=== PATIENT | male | born 2000 | race Hispanic/Latino ===

== ENCOUNTER 2018-01-10 13:46 | Emergency (ER) | payer MEDICAID, OTHER | END 2018-01-10 14:33 | disposition home or self-care (01) | LOC: EDH 13:46 | DX: Z11.3 Encounter for screening for infections with a predominantly sexual mode of transmission (principal) | CPT/HCPCS: 99281 ==

== ENCOUNTER 2020-07-23 13:51 | Emergency (ER) | payer SELFPAY ==
[2020-07-23] MEDS ORDERED: KETOROLAC TROMETHAMINE 30MG/ML ONE (14:23)
[2020-07-23 14:47] LABS: INR 1.01 (0.85-1.15); PARTIAL THROMBOPLASTIN TIME 30.8 SEC (26.3-35.5); POTASSIUM 3.7 mmol/L (3.5-5.1); PROTHROMBIN TIME 10.9 SEC (9.6-11.6)
[2020-07-23 14:54] LABS: ALBUMIN 3.6 g/dL (3.5-5.0); BILIRUBIN,TOTAL 0.3 mg/dL (0.2-1.0); TOTAL PROTEIN, SERUM 7.3 g/dL (6.0-8.3)
[2020-07-23 15:02] LABS: BASOPHILS % (AUTO) 0.3 % (0.0-5.0); EOSINOPHILS % (AUTO) 0.3 % (0.0-8.0); HEMATOCRIT 41.9 % (42-54); LYMPHOCYTES % (AUTO) 11.9 % (21.0-51.0); MEAN CORPUSCULAR HEMOGLOBIN 30.7 pg (27.0-33.0); MEAN CORPUSCULAR HGB CONC 34.8 g/dL (32.0-36.0); MEAN CORPUSCULAR VOLUME 88.2 fL (80-100); MONOCYTES % (AUTO) 7.6 % (3.0-13.0); NEUTROPHILS % (AUTO) 79.7 % (40.0-77.0); PLATELET COUNT (AUTO) 182 K/uL (130-400); RED BLOOD CELL COUNT(AUTO) 4.75 MIL/uL (4.50-6.20); RED CELL DISTRIBUTION WIDTH 11.7 % (11.0-15.5); WHITE BLOOD COUNT (AUTO) 9.1 K/uL (4.8-10.8)
[2020-07-23] MEDS ORDERED: CLINDAMYCIN HCL 150 MG CAP ONE (15:50)
== END 2020-07-23 16:16 | disposition home or self-care (01) ==
LOC: EDH 13:51
DX: L03.818 Cellulitis of other sites (principal)
CPT/HCPCS: 36415; 80053; 82550; 85025; 85610; 85730; 93971; 96372; 99284; J1885